=== PATIENT | male | born 1990 | race Caucasian/White ===

== ENCOUNTER 2017-04-10 11:09 | Emergency (ER) | payer BC, OTHER ==
[2017-04-10 11:12] VITALS: BP 127/86
--- NOTE | 2017-04-10 11:16 | EDM.PDOC ---
ED HPI GENERAL MEDICAL PROBLEM - General Chief Complaint: Upper Extremity Injury/Pain Stated Complaint: left hand injury Time Seen by Provider: 04/10/17 11:10 Source of Information: Reports: Patient, Old Records ([facility] chart/EMR) History Limitations: Reports: No Limitations - History of Present Illness INITIAL COMMENTS - FREE TEXT/NARRATIVE: The patient was brought to the emergency room via transport vehicle from [facility] for evaluation of a Workmen's Compensation injury, which occurred at 10:40 a.m. this morning. He rates his discomfort at 4/10. The patient accidentally caught his second left finger on a pin stabilizer with secondary finger pain and a small superficial laceration with no history of paresthesias, or body, neurological deficits, or other complaints or injuries. No medications taken to this point with patient given gaze prior to transfer. No recent history of abdominal pain, heartburn, nausea, diarrhea, melena, gross hematochezia, or any food intolerance, including fatty foods, etc.. The patient also denies any recent fever, cough, wheezing, dyspnea, etc.. He is right-handed Onset: Today, Sudden Onset Date: 04/10/17 Onset Time: 10:40 Duration: Constant Location: Reports: Upper Extremity, Left. 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 Social & Family History - Tobacco Use Smoking Status *Q: Never Smoker Tobacco Use Within Last Twelve Months: No Smoking Cessation Information Provided To Patient: No Second Hand Smoke Exposure: No Second Hand Smoke Education Provided: No - Alcohol Use Alcohol Use History: Yes Days Per Week of Alcohol Use: 2 Number of Drinks Per Day: 3 Total Drinks Per Week: 6 Alcohol Use in Last Twelve Months: Yes - Recreational Drug Use Recreational Drug Use: No Drug Use in Last 12 Months: No - Living Situation & Occupation Living situation: Reports: Single Occupation: Employed ([employer]) Review of Systems - Review of Systems Review Of Systems: ROS reveals no pertinent complaints other than HPI. ED EXAM, GENERAL - Physical Exam Exam: See Below Exam Limited By: No Limitations General Appearance: Alert, WD/WN, No Apparent Distress Head: Atraumatic, Normocephalic Neck: Normal Inspection, Supple, Non-Tender, Full Range of Motion. No: Lymphadenopathy (L), Lymphadenopathy (R), Thyromegaly Respiratory/Chest: No Respiratory Distress, Lungs Clear, Normal Breath Sounds, No Accessory Muscle Use, Chest Non-Tender. No: Pleural Rub, Retractions Cardiovascular: Normal Peripheral Pulses, Regular Rate, Rhythm, No Edema, No Gallop, No JVD, No Murmur, No Rub. No: Gallop/S3, Gallop/S4, Friction Rub Peripheral Pulses: 4+: Radial (L), Radial (R) GI/Abdominal: Normal Bowel Sounds, Soft, Non-Tender, No Organomegaly, No Distention, No Abnormal Bruit, No Mass, Pelvis Stable. No: Guarding (Male) Exam: Deferred Rectal (Males) Exam: Deferred Back Exam: Normal Inspection, Full Range of Motion. No: Muscle Spasm Extremities: Normal Range of Motion, Normal Capillary Refill, Other (Mild palpation pain over the palmar aspect of digit #2 of the left hand with a 1 cm in diameter denudement injury over the mid aspect with additional more proximal 1 cm area of mild skin dehiscence, no foreign body or dislocation, etc.; bilateral below the knee prostheses). No: Joint Swelling Neurological: Alert, Oriented, CN II-XII Intact, Normal Cognition, Normal Gait, Normal Reflexes, No Motor/Sensory Deficits Psychiatric: Normal Affect, Normal Mood Skin Exam: No Rash, Wound/Incision (As above). No: Diaphoretic, Increased Warmth, Lymphangitis Lymphatic: No Adenopathy ED TRAUMA EXTREMITY PROCEDURES - Splinting Left 2nd Digit Splint Site: Digit #2 of the left hand Pre-Procedure NV Status: Normal Post-Procedure NV Status: Normal Splint Material: Aluminum-Foam (3 hole finger splint) Splint Design: Extensor (Flexor extensor) Applied & Form Fitted By: Nurse Provider Post-Splint Application NV Check: NV Status Normal, Good Position Complications: No Course - Vital Signs Last Recorded V/S: Last Vital Signs Temp 37.3 C 04/10/17 11:11 Pulse 81 04/10/17 11:11 Resp 16 04/10/17 11:11 BP 127/86 04/10/17 11:11 Pulse Ox 99 04/10/17 11:11 Vital Signs - 24 hr 04/10/17 11:11 Temperature [ 37.3 C Temporal] Pulse, 81 Peripheral [ Right Pulse Oximetry] Respiratory 16 Rate Blood Pressure 127/86 [Right Upper Arm] O2 Sat by Pulse 99 Oximetry - Orders/Labs/Meds Orders: Active Orders 24 hr Category Date Time Status Vaccines to be Administered [RC] PER UNIT ROUTINE Care 04/10/17 11:18 Active Fingers Second Digit Lt F1 [CR] Stat Exams 04/10/17 11:18 Taken Durable Medical Equipment for Discharge [DME for Oth 04/10/17 11:47 Ordered Discharge] [COMM] Routine Obtain Past Medical Record [OM.PC] Routine Oth 04/10/17 11:17 Active Labs: None Meds: Medications Discontinued Medications Generic Name Dose Route Start Last Admin Trade Name Ghislaine PRN Reason Stop Dose Admin Diphtheria/Tetanus/Acell Pertussis 0.5 ml 04/10/17 11:17 04/10/17 11:30 Adacel IM 04/10/17 11:18 0.5 ml .ONCE ONE Administration Neomycin/Polymyxin/Bacitracin 1 each 04/10/17 11:17 04/10/17 11:31 Triple Antibiotic Oint TOP 04/10/17 11:18 1 each ONETIME ONE Administration - Radiology Interpretation Free Text/Narrative:: X-rays of digit #2 of the left hand, complete, shows no evidence of fracture, dislocation, foreign body, etc. Departure - Departure Time of Disposition: 12:10 Disposition: Home, Self-Care 01 Clinical Impression: Laceration - Discharge Information Instructions: Laceration Care, Adult, [id number] Referrals: Lisbeth Qureshi PA [Primary Care Provider] - Forms: ED Department Discharge Additional Instructions: 1. Follow-up with your regular provider in one week for reevaluation and repeat x-rays of your second finger of the left hand 2. Work excuse- See Form 3. Tylenol 650 mg by mouth every 4 hours and/or OTC ibuprofen 2-3 tabs by mouth every 6 hours with food as directed./needed. 4. Antibacterial soap wash/soak with subsequent antibacterial dressing such as Neosporin, etc. as directed 2 times per day until the wound or laceration site completely heals. Keep the area clean and dry with activity restrictions as discussed. 5. Wear finger splint at all times with exception of bathing as discussed until otherwise directed by your regular provider - Problem List & Annotations (1) Laceration SNOMED Code(s): 013733065 Code(s): TXO2018 - Status: Acute Priority: High Current Visit: Yes Onset Date: 04/10/17 Annotation/Comment:: The nurse soaked the laceration site with Betadine solution with subsequent Neosporin dressing placed and patient also placed in a 3 hole padded finger splint. DTaP given. The patient is aware of suspected possible hairline mid shaft fracture of the distal phalanx , however likely artifact. Close follow-up by regular provider as per discharge instructions. Wound care, etc. discussed. Workmen's Compensation and [employer]/ work excuse forms completed with no significant work restrictions other than using finger splint. - Problem List Review Problem List Initiated/Reviewed/Updated: Yes - My Orders Last 24 Hours: My Active Orders 04/10/17 11:17 Obtain Past Medical Record [OM.PC] Routine 04/10/17 11:18 Vaccines to be Administered [RC] PER UNIT ROUTINE Fingers Second Digit Lt F1 [CR] Stat 04/10/17 11:47 Durable Medical Equipment for Discharge [DME for Discharge] [COMM] Routine - Assessment/Plan Last 24 Hours: My Active Orders 04/10/17 11:17 Obtain Past Medical Record [OM.PC] Routine 04/10/17 11:18 Vaccines to be Administered [RC] PER UNIT ROUTINE Fingers Second Digit Lt F1 [CR] Stat 04/10/17 11:47 Durable Medical Equipment for Discharge [DME for Discharge] [COMM] Routine Assessment:: As above Plan: As above. Extensive precautions were given to the patient, who is in agreement with the treatment plan. See Patient Instructions for further treatment and plan.
[2017-04-10] MEDS ORDERED: Diphtheria,Pertussis(Acell),Tetanus Vaccine 0.5 ML SDV IM ONE (11:17)
[2017-04-10] MEDS ORDERED: Bacitracin/Neomycin/Polymyxin B Oint 0.9 GM U/D Packet TOP ONE (11:17)
== END 2017-04-10 12:10 | disposition home or self-care (01) ==
LOC: LL.ED 11:09
DX: S61.211A Laceration without foreign body of left index finger without damage to nail, initial encounter (principal); T81.30XA Disruption of wound, unspecified, initial encounter; W31.9XXA Contact with unspecified machinery, initial encounter; Y92.89 Other specified places as the place of occurrence of the external cause
CPT/HCPCS: 73140; 90471; 90715; 99284; L3999